=== PATIENT | male | born 1955 | race Caucasian/White ===

== ENCOUNTER 2021-09-12 13:48 | Emergency (ER) | payer OTHER, MEDICAID ==
[~2021-09-12] VITALS: Ht 170.2 cm; Wt 64.0 kg
[2021-09-12] MEDS ORDERED: NICARDIPINE 40MG/200ML PREMIX 200 ML IV ONE (15:30)
[2021-09-12 16:00] LABS: BASOPHILS % 0.8 % (0.0-2.0); EOSINOPHILS % 1.5 % (0.0-5.0); HEMATOCRIT. 43.1 % (42.0-52.0); HEMOGLOBIN. 14.5 g/dL (14.0-18.0); LYMPHOCYTES % 37.8 % (20.0-50.0); MEAN CORPUSCULAR HEMOGLOBIN 29.7 pg (28.0-32.0); MEAN CORPUSCULAR VOLUME 88.4 fL (80.0-94.0); MEAN PLATELET VOLUME 7.6 fl (7.4-10.4); MONOCYTES % 5.9 % (2.0-8.0); PLATELET 284 x1000/uL (130-400); RED BLOOD CELL COUNT 4.87 mill/uL (4.7-6.1); RED CELL DISTRIBUTION WIDTH 13.6 % (11.6-14.6)
[2021-09-12 16:06] LABS: CHLORIDE 106 mEq/L (98-107)
[2021-09-12 16:07] LABS: INR 0.9; PROTHROMBIN TIME 10.2 sec (9.6-11.0)
[2021-09-12] MEDS ORDERED: MECLIZINE 25MG TABLET PO NR (17:00)
[2021-09-12 19:11] VITALS: BP 117/83
[2021-09-12] MEDS ORDERED: IOHEXOL-350 100 ML BOTTLE ONE (20:42)
== END 2021-09-12 19:25 | disposition short-term general hospital (02) ==
LOC: ER 13:48
DX: E11.65 Type 2 diabetes mellitus with hyperglycemia (principal); R26.9 Unspecified abnormalities of gait and mobility; R51.9 Headache, unspecified; R42 Dizziness and giddiness; F17.210 Nicotine dependence, cigarettes, uncomplicated; Z20.822 Contact with and (suspected) exposure to COVID-19; Z79.4 Long term (current) use of insulin
CPT/HCPCS: 36415; 70450; 70496; 70498; 71045; 80053; 84484; 85025; 85610; 87426; 96365; 99291; C9803; J8597; Q9967